=== PATIENT | female | born 1965 | race Caucasian/White ===

== ENCOUNTER 2021-03-07 13:11 | Emergency (ER) | payer MEDICAID ==
[~2021-03-07] VITALS: Ht 165.1 cm; Wt 75.9 kg
--- NOTE | 2021-03-07 13:15 | NUR ---
56 Y FEMALE WITH C/O LT FLANK/ABD PAIN WITH N/V/D X 1 WEEK. PAIN 10/10 SKIN PALE CLAMY. PT STATED PAIN IS RADIATING FROM L FLANK TO L ABDOMINAL REGION. TENDERNESS WITH PALPATION AND BOWEL SOUNDS ACTIVE IN ALL FOUR QUADRANTS. PT DENIES ANY CHEST PAIN OR SOB AT THIS TIME. PMH: DENIES NKA
[2021-03-07 13:18] VITALS: BP 93/47
--- NOTE | 2021-03-07 13:23 | NUR ---
PT TO ER BED 8 VIA W/C
[2021-03-07] MEDS ORDERED: NACL 0.9% 1,000 ML IV SCH (13:30)
[2021-03-07] MEDS ORDERED: ONDANSETRON 4 MG/2 ML VIAL IVP ONE (13:30)
[2021-03-07] MEDS ORDERED: KETOROLAC 30 MG/ML VIAL IVP ONE (13:30)
--- NOTE | 2021-03-07 13:32 | NUR ---
20 G IV ESTABLISHED IN R AC. BLOOD WORK COLLECTED FROM LAB AND HANDED TO AEMT
--- NOTE | 2021-03-07 13:44 | NUR ---
PER ERMD 12 LEAD WAS DONE ON PT AND CAME BACK NSR AT 75 HR.
[2021-03-07 13:48] LABS: BASOPHILS # (AUTO) 0.1 K/uL (0.00-0.22); BASOPHILS % (AUTO) 0.5 % (0.0-2.0); EOSINOPHILS % (AUTO) 0.1 % (0.0-4.0); HEMATOCRIT 40.7 % (36-48); HEMOGLOBIN 13.7 g/dL (12.0-16.0); LYMPHOCYTES # (AUTO) 1.7 K/uL (2.5-16.5); LYMPHOCYTES % (AUTO) 15.3 % (20.5-51.1); MEAN CORPUSCULAR HEMOGLOBIN 30 pg (27-31); MEAN CORPUSCULAR HGB CONC 34 g/dL (33-37); MEAN CORPUSCULAR VOLUME 89.8 fL (80-94); MONOCYTES # (AUTO) 0.7 K/uL (0.8-1.0); MONOCYTES % (AUTO) 6.3 % (1.7-9.3); NEUTROPHILS # (AUTO) 8.5 K/uL (1.8-7.7); NEUTROPHILS % (AUTO) 77.8 % (42.2-75.2); PLATELET COUNT (AUTO) 280 K/uL (140-450); RED BLOOD CELL COUNT(AUTO) 4.53 MIL/uL (4.20-5.40); RED CELL DISTRIBUTION WIDTH 12.8 % (11.6-13.7); WHITE BLOOD COUNT (AUTO) 10.9 K/uL (4.8-10.8)
--- NOTE | 2021-03-07 13:55 | NUR ---
URINE SAMPLE COLLECTED, BUT MORE NEEDED TO PERFORM UA PER LAB
[2021-03-07 14:04] LABS: ALBUMIN 4.2 g/dL (3.4-5.0); CARBON DIOXIDE 27.5 mmol/L (21-32); CREATININE 1.3 mg/dL (0.6-1.3); POTASSIUM 3.5 mmol/L (3.5-5.1); TOTAL BILIRUBIN 0.6 mg/dL (0.0-1.0)
--- NOTE | 2021-03-07 14:04 | NUR ---
DR. HDZ BEDSIDE EVALUATING PT
--- NOTE | 2021-03-07 15:05 | NUR ---
PT CURRENTLY RESTING BEDSIDE WITH EYES CLOSED. PT STATED SHE IS EXPERINCED PAIN RELIEF. VITAL SIGNS STABLE AND CHARTED
[2021-03-07] MEDS ORDERED: IBUP-2213 PO (15:28)
[2021-03-07] MEDS ORDERED: ACET-8386 PO (15:28)
[2021-03-07] MEDS ORDERED: TAMS0.4C96 PO (15:28)
[2021-03-07 15:44] VITALS: BP 118/62
--- NOTE | 2021-03-07 15:44 | NUR ---
Patient discharged with v/s stable. Written and verbal after care instructions given and explained. Patient alert, oriented and verbalized understanding of instructions. Ambulatory with steady gait. All questions addressed prior to discharge. ID band removed. Patient advised to follow up with PMD. Rx of NORCO, IBUPROFEN, AND FLOMAX given. Patient educated on indication of medication including possible reaction and side effects. Opportunity to ask questions provided and answered.
== END 2021-03-07 15:44 | disposition home or self-care (01) ==
LOC: MED 13:11
DX: N20.0 Calculus of kidney (principal); R11.10 Vomiting, unspecified; Z79.899 Other long term (current) drug therapy
CPT/HCPCS: 36415; 74176; 80053; 81002; 81025; 83690; 85025; 93005; 96361; 96374; 96375; 99285; J1885; J2405; J7030